=== PATIENT | female | born 1990 | race Caucasian/White ===

== ENCOUNTER 2021-10-10 16:45 | Emergency (ER) | payer OTHER ==
[2021-10-10] MEDS ORDERED: Dexamethasone 10 MG/ML VIAL ONE (17:50)
[2021-10-10] MEDS ORDERED: Ketorolac Tromethamine 30 MG/ML VIAL ONE (17:50)
== END 2021-10-10 18:20 | disposition home or self-care (01) ==
LOC: MADERS 16:45
DX: M06.9 Rheumatoid arthritis, unspecified (principal); Z85.41 Personal history of malignant neoplasm of cervix uteri
CPT/HCPCS: 96372; 99282; J1100; J1885

== ENCOUNTER 2021-12-04 18:46 | Emergency (ER) | payer OTHER ==
[2021-12-04] MEDS ORDERED: traMADol HCl 50 MG TAB ONE (19:29)
[2021-12-04] MEDS ORDERED: Ketorolac Tromethamine 30 MG/ML VIAL ONE (19:30)
== END 2021-12-04 19:43 | disposition home or self-care (01) ==
LOC: MADERS 18:46
DX: M06.9 Rheumatoid arthritis, unspecified (principal); M79.7 Fibromyalgia; Z85.41 Personal history of malignant neoplasm of cervix uteri; Z79.899 Other long term (current) drug therapy
CPT/HCPCS: 96372; 99283; J1040; J1885

== ENCOUNTER 2022-07-30 13:57 | Emergency (ER) | payer OTHER ==
[2022-07-30] MEDS ORDERED: Dexamethasone 10 MG/ML VIAL ONE (14:45)
[2022-07-30] MEDS ORDERED: Ketorolac Tromethamine 30 MG/ML VIAL ONE (14:45)
[2022-07-30 15:03] LABS: #Eosinphils 0.2 thou/uL (0.0-0.7); #Lymphocytes 1.3 thou/uL (1.20-3.40); #Monocytes 0.3 thou/uL (0.11-0.59); #Neutrophils 3.2 thou/uL (1.40-6.50); %Basophils 0.8 % (0.0-1.0); %Eosinophils 3.1 % (0.0-10.0); %Monocytes 5.9 % (0.0-10.0); %Neutrophils 64.1 % (42.0-75.0); Hemoglobin 14.6 g/dL (12.0-16.0); Mean Corpuscular HGB CONC 34.2 g/dL (32.0-36.0); Mean Corpuscular Hemoglobin 32.2 pg (27.0-31.0); Mean Corpuscular Volume 94.3 fl (78.0-98.0); Mean Platelet Volume 7.7 fL (7.4-10.4); Platelet Count 270 10x3/uL (130-400); RBC Distribution Width 11.4 % (11.5-14.5); Red Blood Cell (RBC) Count 4.54 mill/uL (4.20-5.40)
[2022-07-30 15:19] LABS: Anion Gap 13 mmol/L (10-20); BUN (Urea Nitrogen) 12 mg/dL (7.0-18.7); Calc. Creatinine Clearance 0 mL/min (70-130); Calcium 9.4 mg/dL (7.8-10.44); Carbon Dioxide 23 mmol/L (22-29); Chloride 106 mmol/L (98-107); Estimated GFR 107; Glucose 96 mg/dL (70-105); Potassium 4.3 mmol/L (3.5-5.1); Sodium 138 mmol/L (136-145)
[2022-07-30 15:21] LABS: CRP (Inflammatory) Less than 0.50 mg/dL (= or < 0.5); Uric Acid 4.9 mg/dL (2.6-6.0)
== END 2022-07-30 16:05 | disposition home or self-care (01) ==
LOC: MADERS 13:57
DX: M06.9 Rheumatoid arthritis, unspecified (principal)
CPT/HCPCS: 80048; 84550; 85025; 86140; 96372; 99283; J1100; J1885

== ENCOUNTER 2023-01-29 12:50 | Emergency (ER) | payer OTHER ==
[2023-01-29] MEDS ORDERED: methylPREDNISolone Sod Succ/PF 125 MG/2 ML VIAL ONE (13:27)
[2023-01-29 13:44] LABS: Pregu Control Background? CLEAR/WHITE (CLR/WHITE); Pregu Control Bar Appear? YES (CONTROL BAR)
[2023-01-29 13:46] LABS: Pregnancy Test - Urine (BHCG) Negative (Negative)
== END 2023-01-29 13:50 | disposition home or self-care (01) ==
LOC: MADERS 12:50
DX: M25.462 Effusion, left knee (principal)
CPT/HCPCS: 81025; 96372; J2930

== ENCOUNTER 2023-04-17 07:26 | Emergency (ER) | payer OTHER ==
[2023-04-17] MEDS ORDERED: Ketorolac Tromethamine 30 MG/ML VIAL ONE (07:52)
[2023-04-17] MEDS ORDERED: methylPREDNISolone Sod Succ/PF 125 MG/2 ML VIAL ONE (07:52)
[2023-04-17 10:01] LABS: Pregnancy Test - Urine (BHCG) Negative (Negative); Pregu Control Background? CLEAR/WHITE (CLR/WHITE); Pregu Control Bar Appear? YES (CONTROL BAR)
== END 2023-04-17 10:11 | disposition home or self-care (01) ==
LOC: MADERS 07:26
DX: M06.841 Other specified rheumatoid arthritis, right hand (principal); M06.842 Other specified rheumatoid arthritis, left hand; F17.210 Nicotine dependence, cigarettes, uncomplicated
CPT/HCPCS: 81025; 96372; 99283; J1885; J2930

== ENCOUNTER 2023-09-26 10:13 | Emergency (ER) | payer OTHER ==
[2023-09-26] MEDS ORDERED: Dexamethasone 10 MG/ML VIAL ONE (10:55)
[2023-09-26] MEDS ORDERED: Ketorolac Tromethamine 30 MG (1 mL) VIAL ONE (10:55)
== END 2023-09-26 11:00 | disposition home or self-care (01) ==
LOC: MADERS 10:13
DX: M06.9 Rheumatoid arthritis, unspecified (principal); F17.290 Nicotine dependence, other tobacco product, uncomplicated
CPT/HCPCS: 96372; 99283; J1100; J1885

== ENCOUNTER 2023-12-14 16:59 | Emergency (ER) | payer OTHER ==
[2023-12-14] MEDS ORDERED: Ketorolac Tromethamine 30 MG (1 mL) VIAL ONE (17:30)
[2023-12-14] MEDS ORDERED: Dexamethasone 10 MG/ML VIAL ONE (17:30)
== END 2023-12-14 17:39 | disposition home or self-care (01) ==
LOC: MADERS 16:59
DX: M06.9 Rheumatoid arthritis, unspecified (principal); F17.290 Nicotine dependence, other tobacco product, uncomplicated; F17.210 Nicotine dependence, cigarettes, uncomplicated
CPT/HCPCS: 96372; 99283; J1100; J1885

== ENCOUNTER 2023-12-30 19:50 | Emergency (ER) | payer OTHER ==
[2023-12-30] MEDS ORDERED: Ketorolac Tromethamine 30 MG (1 mL) VIAL ONE (20:00)
[2023-12-30] MEDS ORDERED: Dexamethasone 10 MG/ML VIAL ONE (20:00)
== END 2023-12-30 20:20 | disposition home or self-care (01) ==
LOC: MADERS 19:50
DX: M19.041 Primary osteoarthritis, right hand (principal); M17.11 Unilateral primary osteoarthritis, right knee; F17.290 Nicotine dependence, other tobacco product, uncomplicated; F17.210 Nicotine dependence, cigarettes, uncomplicated
CPT/HCPCS: 96372; 99283; J1100; J1885

== ENCOUNTER 2024-01-25 12:41 | Emergency (ER) | payer OTHER ==
[2024-01-25] MEDS ORDERED: predniSONE 20 MG TAB ONE (13:37)
== END 2024-01-25 14:09 | disposition home or self-care (01) ==
LOC: MADERS 12:41
DX: M06.9 Rheumatoid arthritis, unspecified (principal); F17.290 Nicotine dependence, other tobacco product, uncomplicated
CPT/HCPCS: 99283; J7512

== ENCOUNTER 2025-03-06 21:51 | Emergency (ER) | payer MEDICAID, OTHER ==
[2025-03-06] MEDS ORDERED: Lidocaine 1% w/Epinephrine 1:100K 20 ML VIAL ONE (22:23)
[2025-03-06] MEDS ORDERED: Dexamethasone 10 MG/ML VIAL ONE (22:23)
[2025-03-07 02:07] LABS: RBC Count-Automated (BF) 765 /cu.mm; WBC/Nucleated-Auto (BF) 1099 /cu.mm
[2025-03-07 04:03] LABS: BF Segmented Neutrophils 8 %; Cell Count Non Hematic 81 %
== END 2025-03-06 22:57 | disposition home or self-care (01) ==
LOC: MADERS 21:51
DX: M06.9 Rheumatoid arthritis, unspecified (principal); M25.461 Effusion, right knee; F90.9 Attention-deficit hyperactivity disorder, unspecified type; E05.00 Thyrotoxicosis with diffuse goiter without thyrotoxic crisis or storm; M45.9 Ankylosing spondylitis of unspecified sites in spine; E03.9 Hypothyroidism, unspecified; F17.290 Nicotine dependence, other tobacco product, uncomplicated
CPT/HCPCS: 20610; 82945; 85060; 87070; 87205; 89051; 89060; 96372; J0665; J1100